=== PATIENT | male | born 1980 | race Caucasian/White ===

== ENCOUNTER 2020-11-21 13:59 | Inpatient (IN) | payer MEDICAID ==
[~2020-11-21] VITALS: Ht 185.4 cm; Wt 124.0 kg
[~2020-11-21 13:59] MED LIST: GLYB2.5T14 PO; RANI150C3 PO
[2020-11-21 14:51] LABS: Urine Bacteria NONE SEEN /hpf (None Seen); Urine Blood 3+ /uL (Negative); Urine Specific Gravity 1.027 (1.001-1.035); Urine WBC 9 /hpf (0 - 3)
[2020-11-21 15:01] LABS: White Blood Cell 8.5 10^3/uL (4.4-10.8)
[2020-11-21 15:02] LABS: Hemoglobin 11.9 g/dL (13.5-17.5); Mean Corpuscular Hemoglobin 38.8 pg (28.0-32.0); Mean Corpuscular Hgb Conc. 32.2 g/dL (32.0-36.0); Mean Corpuscular Volume 120.6 fL (80.0-100.0); Red Blood Cells 3.07 10^6/uL (4.5-5.90); Red Cell Distribution Width 18.2 % (11.8-14.3)
[2020-11-21 15:13] LABS: Band Neutrophils % (manual) 0; Basophils % (manual) 0 (0.0-2.0); Blast Cells 0; Eosinophils % (manual) 0 (0-7); Metamyelocytes % 0; Myelocytes % 0; Promyelocytes % 0; Reactive Lymphocytes 0
[2020-11-21 15:27] LABS: Albumin 2.7 g/dL (3.4-5.0); Calcium 12.1 mg/dL (8.5-10.1); Potassium 3.9 mmol/L (3.5-5.1)
[2020-11-21 15:33] LABS: BUN/Creatinine Ratio 26.9; Bilirubin, Total 0.4 mg/dL (0.2-1.0); Total Protein 8.1 g/dL (6.4-8.2)
[2020-11-21 15:43] LABS: Lymphocytes % (manual) 15 (10.0-50.0); Monocytes % (manual) 2 (0-12)
[2020-11-21] MEDS ORDERED: SODIUM CHLORIDE 0.9% 500 ML IV ONE (16:00)
[2020-11-21] MEDS ORDERED: SODIUM CHLORIDE 0.9% 1,000 ML IV ONE ×2 (16:00→22:00)
[2020-11-21] MEDS ORDERED: VANCOMYCIN 1GM/250ML 250 ML IV ONE (16:15)
[2020-11-21 16:57] LABS: INR 1.19 (0.9-1.15); Partial Thromboplastin Time < 20.0 sec (23.6-33.0)
[2020-11-21 17:25] LABS: Magnesium 3.3 mg/dL (1.6-2.6)
[2020-11-21] MEDS ORDERED: NITROGLYCERIN 0.4 MG SL TAB SL PRN (22:00)
[2020-11-21] MEDS ORDERED: MORPHINE SULFATE INJECTION 2 MG/ML SYRG IV PRN (22:00)
[2020-11-21] MEDS ORDERED: SODIUM BICARBONATE 50ML VIAL 150 ML in D5W 5% 1,000 ML IV SCH (22:00)
[2020-11-21] MEDS ORDERED: DEXTROSE (50%) 50ML SYRG IV PRN (22:00)
[2020-11-21 23:54] LABS: BUN/Creatinine Ratio 34.1; Calcium 10.8 mg/dL (8.5-10.1); Potassium 3.8 mmol/L (3.5-5.1)
[2020-11-22] MEDS: ACCU-CHEK COMFORT CURVE STRIP VI SCH ×6 (00:15→23:03)
[2020-11-22] MEDS: PIPERACILLIN-TAZOB 3.375GM 100 ML IV SCH ×4 (01:02→18:16)
[2020-11-22] MEDS: InsuLIN REG 1unit/0.01ml Soln (100units/ml) SC SCH ×6 (04:00→23:06)
[2020-11-22 06:54] LABS: Potassium 3.7 mmol/L (3.5-5.1)
[2020-11-22 07:00] LABS: Albumin 2.2 g/dL (3.4-5.0); BUN/Creatinine Ratio 34.5; Calcium 10.6 mg/dL (8.5-10.1)
[2020-11-22] MEDS: INSULIN LANTUS (GLARGINE) 1 /0.01ml (100units/ml) SC SCH (07:00)
[2020-11-22 07:03] LABS: Bilirubin, Total 0.5 mg/dL (0.2-1.0); Total Protein 6.9 g/dL (6.4-8.2)
[2020-11-22 07:06] LABS: Hematocrit 32.3 % (41.0-53.0); Hemoglobin 10.2 g/dL (13.5-17.5); Mean Corpuscular Hemoglobin 38.2 pg (28.0-32.0); Mean Corpuscular Hgb Conc. 31.6 g/dL (32.0-36.0); Mean Corpuscular Volume 120.7 fL (80.0-100.0); Red Blood Cells 2.68 10^6/uL (4.5-5.90); Red Cell Distribution Width 17.6 % (11.8-14.3); White Blood Cell 7.6 10^3/uL (4.4-10.8)
[2020-11-22 07:08] LABS: Basophils % (manual) 0 (0.0-2.0); Blast Cells 0; Eosinophils % (manual) 0 (0-7); Metamyelocytes % 0; Myelocytes % 0; Promyelocytes % 0; Reactive Lymphocytes 0
[2020-11-22] MEDS ORDERED: DEXTROSE (50%) 50ML SYRG IV PRN (09:45)
[2020-11-22] MEDS: SODIUM BICARBONATE 50ML VIAL 150 ML in D5W 5% 1,000 ML IV SCH ×2 (09:45→18:51)
[2020-11-22 10:47] LABS: Band Neutrophils % (manual) 1; Lymphocytes % (manual) 2 (10.0-50.0); Monocytes % (manual) 3 (0-12)
[2020-11-22 11:28] LABS: Amphetamine Screen, Urine NEGATIVE (NEGATIVE); Barbiturate Scree,Urine NEGATIVE (NEGATIVE); Benzodiazephine Screen, Urine NEGATIVE (NEGATIVE); Cannabinoid Screen, Urine POSITIVE (NEGATIVE); Cocaine Screen, Urine NEGATIVE (NEGATIVE); Opiate Scree,Urine NEGATIVE (NEGATIVE); Phencyclidine Screen, Urine NEGATIVE (NEGATIVE)
[2020-11-22 12:15] LABS: Alcohol, Urine < 3.0 mg/dL (0-10)
[2020-11-22 13:29] LABS: Protein, Urine 135.1 mg/dL (0.0-11.9)
[2020-11-23] MEDS: PIPERACILLIN-TAZOB 3.375GM 100 ML IV SCH ×4 (00:11→18:00)
[2020-11-23 05:18] LABS: Mean Corpuscular Volume 115.6 fL (80.0-100.0)
[2020-11-23 05:21] LABS: Hematocrit 26.1 % (41.0-53.0); Hemoglobin 8.7 g/dL (13.5-17.5); Mean Corpuscular Hemoglobin 38.6 pg (28.0-32.0); Mean Corpuscular Hgb Conc. 33.4 g/dL (32.0-36.0); Red Blood Cells 2.26 10^6/uL (4.5-5.90); Red Cell Distribution Width 16.7 % (11.8-14.3); White Blood Cell 5.7 10^3/uL (4.4-10.8)
[2020-11-23 05:38] LABS: BUN/Creatinine Ratio 32.6; Calcium 9.8 mg/dL (8.5-10.1)
[2020-11-23 06:00] LABS: Band Neutrophils % (manual) 0; Basophils % (manual) 0 (0.0-2.0); Blast Cells 0; Eosinophils % (manual) 0 (0-7); Metamyelocytes % 0; Myelocytes % 0; Promyelocytes % 0; Reactive Lymphocytes 0
[2020-11-23 06:22] LABS: Potassium 2.6 mmol/L (3.5-5.1)
[2020-11-23 06:50] LABS: Lymphocytes % (manual) 8 (10.0-50.0); Monocytes % (manual) 3 (0-12)
[2020-11-23] MEDS ORDERED: POTASSIUM PHOSPHATE 30 MEQ in SODIUM CHL 0.9% 100 ML IV ONE (07:00)
[2020-11-23] MEDS ORDERED: POTASSIUM PHOSPHATE 44 MEQ in D5W 5% 250 ML IV ONE ×3 (07:45→20:00)
[2020-11-23] MEDS ORDERED: POTASSIUM PHOSPHATE 30 MEQ in D5W 5% 250 ML IV ONE ×2 (08:00→11:00)
[2020-11-23] MEDS: POTASSIUM CHL 20MEQ/100ML 100 ML IV SCH ×4 (09:00→19:30)
[2020-11-23] MEDS: POTASSIUM CHLORIDE IV SCH (09:58)
[2020-11-23] MEDS: SODIUM BICARBONATE IV SCH (09:58)
[2020-11-23] MEDS: D5W 5% IV SCH (09:58)
[2020-11-23] MEDS ORDERED: MAGNESIUM SULFATE 1GM/100ML 100 ML IV SCH (10:00)
[2020-11-23] MEDS: INSULIN LANTUS (GLARGINE) 1 /0.01ml (100units/ml) SC SCH (11:35)
[2020-11-23] MEDS: ACCU-CHEK COMFORT CURVE STRIP VI SCH ×2 (11:35→17:00)
[2020-11-23] MEDS: InsuLIN REG 1unit/0.01ml Soln (100units/ml) SC SCH ×4 (11:35→22:00)
[2020-11-23] MEDS: MAGNESIUM SULFATE 1GM/100ML 100 ML IV SCH ×2 (15:00→16:00)
[2020-11-23 17:30] LABS: BUN/Creatinine Ratio 25.6; Calcium 9.6 mg/dL (8.5-10.1); Phosphorus 1.1 mg/dL (2.5-4.90)
[2020-11-23 17:55] LABS: Potassium 2.6 mmol/L (3.5-5.1)
[2020-11-23 22:00] VITALS: BP 110/63
[2020-11-24] MEDS: SODIUM BICARBONATE IV SCH ×4 (00:08→11:12)
[2020-11-24] MEDS: POTASSIUM CHLORIDE IV SCH ×4 (00:08→11:12)
[2020-11-24] MEDS: D5W 5% IV SCH ×4 (00:08→11:12)
[2020-11-24] MEDS: ACCU-CHEK COMFORT CURVE STRIP VI SCH ×5 (00:09→21:15)
[2020-11-24] MEDS: PIPERACILLIN-TAZOB 3.375GM 100 ML IV SCH ×4 (00:11→18:12)
[2020-11-24 05:00] VITALS: BP 116/62
[2020-11-24] MEDS: InsuLIN REG 1unit/0.01ml Soln (100units/ml) SC SCH ×4 (07:00→21:15)
[2020-11-24] MEDS: INSULIN LANTUS (GLARGINE) 1 /0.01ml (100units/ml) SC SCH (07:05)
[2020-11-24] MEDS ORDERED: MORP1TAB12 PO (07:42)
[2020-11-24] MEDS ORDERED: OXYC-963 (07:43)
[2020-11-24 08:12] LABS: Calcium 9.1 mg/dL (8.5-10.1)
[2020-11-24 08:15] LABS: BUN/Creatinine Ratio 18.2
[2020-11-24 08:31] LABS: Phosphorus 0.7 mg/dL (2.5-4.90); Potassium 2.6 mmol/L (3.5-5.1)
[2020-11-24] MEDS: OXYCODONE W/ ACETAMINOPHEN 5/325MG TABLET PO PRN ×3 (08:33→21:17)
[2020-11-24 09:00] VITALS: BP 107/65
[2020-11-24] MEDS ORDERED: POTASSIUM PHOSPHATE 44 MEQ in D5W 5% 250 ML IV ONE (10:00)
[2020-11-24] MEDS: POTASSIUM CHL 20 Meq TABLET PO SCH ×4 (11:15→21:47)
[2020-11-24 13:00] VITALS: BP 106/59
[2020-11-24 17:00] VITALS: BP 98/52
[2020-11-24 22:00] VITALS: BP 102/56
[2020-11-25] MEDS: PIPERACILLIN-TAZOB 3.375GM 100 ML IV SCH ×5 (01:14→23:41)
[2020-11-25] MEDS: OXYCODONE W/ ACETAMINOPHEN 5/325MG TABLET PO PRN ×5 (01:17→20:36)
[2020-11-25 05:00] VITALS: BP 100/51
[2020-11-25] MEDS: INSULIN LANTUS (GLARGINE) 1 /0.01ml (100units/ml) SC SCH (06:12)
[2020-11-25] MEDS: ACCU-CHEK COMFORT CURVE STRIP VI SCH ×4 (06:12→22:42)
[2020-11-25] MEDS: InsuLIN REG 1unit/0.01ml Soln (100units/ml) SC SCH ×3 (06:12→18:00)
[2020-11-25 07:06] LABS: Potassium 3.1 mmol/L (3.5-5.1)
[2020-11-25 07:09] LABS: BUN/Creatinine Ratio 7.7; Calcium 8.7 mg/dL (8.5-10.1); Magnesium 1.9 mg/dL (1.6-2.6)
[2020-11-25 07:48] LABS: Phosphorus 0.6 mg/dL (2.5-4.90)
[2020-11-25 09:00] VITALS: BP 105/47
[2020-11-25] MEDS ORDERED: POTASSIUM PHOSPHATE 44 MEQ in D5W 5% 250 ML IV ONE (09:00)
[2020-11-25] MEDS ORDERED: POTASSIUM EFFERVESENT TAB 25 MEQ PO SCH (10:00)
[2020-11-25 13:00] VITALS: BP 97/52
[2020-11-25] MEDS ORDERED: POTASSIUM CHL 20 Meq TABLET PO ONE ×2 (14:00→18:00)
[2020-11-25 17:00] VITALS: BP 90/40
[2020-11-25 19:53] LABS: Magnesium 1.7 mg/dL (1.6-2.6); Phosphorus 1.2 mg/dL (2.5-4.90); Potassium 3.9 mmol/L (3.5-5.1)
[2020-11-25 22:00] VITALS: BP 115/59
[2020-11-26] MEDS: OXYCODONE W/ ACETAMINOPHEN 5/325MG TABLET PO PRN ×5 (00:40→21:30)
[2020-11-26 05:00] VITALS: BP 95/58
[2020-11-26] MEDS ORDERED: POTASSIUM PHOSPHATE 44 MEQ in D5W 5% 250 ML IV ONE (05:00)
[2020-11-26] MEDS: PIPERACILLIN-TAZOB 3.375GM 100 ML IV SCH ×3 (06:46→17:59)
[2020-11-26] MEDS: ACCU-CHEK COMFORT CURVE STRIP VI SCH ×4 (06:46→21:31)
[2020-11-26] MEDS: INSULIN LANTUS (GLARGINE) 1 /0.01ml (100units/ml) SC SCH (06:48)
[2020-11-26] MEDS: InsuLIN REG 1unit/0.01ml Soln (100units/ml) SC SCH ×3 (08:00→21:32)
[2020-11-26 08:14] LABS: Magnesium 1.7 mg/dL (1.6-2.6); Phosphorus 1.2 mg/dL (2.5-4.90)
[2020-11-26 09:00] VITALS: BP 105/59
[2020-11-26 13:00] VITALS: BP 104/56
[2020-11-26] MEDS ORDERED: DEXTROSE (50%) 50ML SYRG IV PRN (13:30)
[2020-11-26 17:00] VITALS: BP 102/64
[2020-11-26 22:25] VITALS: BP 102/55
[2020-11-27] MEDS: PIPERACILLIN-TAZOB 3.375GM 100 ML IV SCH ×5 (00:40→23:44)
[2020-11-27] MEDS: OXYCODONE W/ ACETAMINOPHEN 5/325MG TABLET PO PRN ×6 (01:35→23:44)
[2020-11-27 05:25] VITALS: BP 97/55
[2020-11-27] MEDS: InsuLIN REG 1unit/0.01ml Soln (100units/ml) SC SCH ×4 (06:00→21:43)
[2020-11-27] MEDS: ACCU-CHEK COMFORT CURVE STRIP VI SCH ×4 (06:00→21:43)
[2020-11-27 09:00] VITALS: BP 98/60
[2020-11-27] MEDS: levoFLOXacin 500 MG TAB PO SCH (09:54)
[2020-11-27] MEDS: SODIUM CHLORIDE 0.9% 1,000 ML IV SCH ×2 (11:29→21:00)
[2020-11-27 12:35] LABS: Calcium 8.1 mg/dL (8.5-10.1); Magnesium 1.7 mg/dL (1.6-2.6); Potassium 3.6 mmol/L (3.5-5.1)
[2020-11-27 13:00] VITALS: BP 97/63
[2020-11-27 17:00] VITALS: BP 101/59
[2020-11-27] MEDS: SENNA 8.6 MG TAB PO SCH (21:12)
[2020-11-27] MEDS: MORPHINE SULF 15mg ER tab PO SCH (21:12)
[2020-11-27 22:00] VITALS: BP 103/64
[2020-11-28 04:52] VITALS: BP 97/62
[2020-11-28] MEDS: OXYCODONE W/ ACETAMINOPHEN 5/325MG TABLET PO PRN ×5 (05:20→23:07)
[2020-11-28] MEDS: PIPERACILLIN-TAZOB 3.375GM 100 ML IV SCH ×3 (06:11→18:07)
[2020-11-28] MEDS: InsuLIN REG 1unit/0.01ml Soln (100units/ml) SC SCH (06:11)
[2020-11-28] MEDS: SODIUM CHLORIDE 0.9% 1,000 ML IV SCH (06:11)
[2020-11-28] MEDS: ACCU-CHEK COMFORT CURVE STRIP VI SCH (06:12)
[2020-11-28 08:02] LABS: Hemoglobin 9.2 g/dL (13.5-17.5); White Blood Cell 9.3 10^3/uL (4.4-10.8)
[2020-11-28 08:03] LABS: Hematocrit 27.9 % (41.0-53.0); Mean Corpuscular Hemoglobin 39.3 pg (28.0-32.0); Mean Corpuscular Hgb Conc. 32.8 g/dL (32.0-36.0); Mean Corpuscular Volume 119.8 fL (80.0-100.0); Red Blood Cells 2.33 10^6/uL (4.5-5.90); Red Cell Distribution Width 17.7 % (11.8-14.3)
[2020-11-28 08:11] LABS: Basophils % (manual) 0 (0.0-2.0); Blast Cells 0; Eosinophils % (manual) 0 (0-7); Metamyelocytes % 0; Myelocytes % 0; Promyelocytes % 0; Reactive Lymphocytes 0
[2020-11-28 08:14] LABS: BUN/Creatinine Ratio 6.5; Calcium 8.3 mg/dL (8.5-10.1); INR 1.22 (0.9-1.15); Partial Thromboplastin Time 23.2 sec (23.6-33.0); Potassium 3.4 mmol/L (3.5-5.1)
[2020-11-28 08:40] VITALS: BP 97/58
[2020-11-28] MEDS: levoFLOXacin 500 MG TAB PO SCH (09:38)
[2020-11-28] MEDS: MORPHINE SULF 15mg ER tab PO SCH ×2 (09:38→21:32)
[2020-11-28] MEDS ORDERED: ENOXAPARIN SOD 40 MG/0.4 ML SYRINGE SC ONE (11:15)
[2020-11-28] MEDS ORDERED: FLUDROCORTISONE ACETATE 0.1 MG TAB PO ONE (11:15)
[2020-11-28] MEDS ORDERED: LEVALBUTEROL HCL 1.25 MG/3 ML NEB NEB PRN (11:15)
[2020-11-28] MEDS ORDERED: POTASSIUM CHL 20 Meq TABLET PO ONE (11:15)
[2020-11-28 14:30] VITALS: BP 100/55
[2020-11-28 14:50] VITALS: BP 97/58
[2020-11-28 14:58] LABS: Band Neutrophils % (manual) 3; Lymphocytes % (manual) 27 (10.0-50.0); Monocytes % (manual) 15 (0-12)
[2020-11-28 17:27] VITALS: BP 89/53
[2020-11-28] MEDS: SENNA 8.6 MG TAB PO SCH (21:32)
[2020-11-28 22:00] VITALS: BP 105/60
[2020-11-29] MEDS: PIPERACILLIN-TAZOB 3.375GM 100 ML IV SCH ×5 (00:27→23:04)
[2020-11-29] MEDS: OXYCODONE W/ ACETAMINOPHEN 5/325MG TABLET PO PRN ×4 (03:15→20:11)
[2020-11-29 05:00] VITALS: BP 100/59
[2020-11-29 08:13] VITALS: BP 92/62
[2020-11-29] MEDS ORDERED: FLUDROCORTISONE ACETATE 0.1 MG TAB PO SCH (10:00)
[2020-11-29 10:30] LABS: White Blood Cell 9.8 10^3/uL (4.4-10.8)
[2020-11-29 10:33] LABS: Hematocrit 31.1 % (41.0-53.0); Mean Corpuscular Hemoglobin 38.5 pg (28.0-32.0); Mean Corpuscular Hgb Conc. 32.2 g/dL (32.0-36.0); Mean Corpuscular Volume 119.5 fL (80.0-100.0); Red Cell Distribution Width 17.6 % (11.8-14.3)
[2020-11-29 10:42] LABS: Band Neutrophils % (manual) 0; Basophils % (manual) 0 (0.0-2.0); Blast Cells 0; Eosinophils % (manual) 0 (0-7); Metamyelocytes % 0; Myelocytes % 0; Promyelocytes % 0; Reactive Lymphocytes 0
[2020-11-29 10:47] LABS: Calcium 8.4 mg/dL (8.5-10.1); Potassium 3.9 mmol/L (3.5-5.1)
[2020-11-29] MEDS: FLUDROCORTISONE ACETATE 0.1 MG TAB PO SCH ×2 (10:52→21:54)
[2020-11-29] MEDS: MORPHINE SULF 15mg ER tab PO SCH ×3 (10:52→22:44)
[2020-11-29] MEDS: ENOXAPARIN SOD 40 MG/0.4 ML SYRINGE SC SCH (10:52)
[2020-11-29] MEDS: levoFLOXacin 500 MG TAB PO SCH (10:52)
[2020-11-29 13:21] VITALS: BP 139/77
[2020-11-29 13:23] VITALS: BP 120/61
[2020-11-29] MEDS ORDERED: LORATADINE 10 MG TAB PO SCH (14:00)
[2020-11-29 15:04] LABS: Lymphocytes % (manual) 16 (10.0-50.0); Monocytes % (manual) 16 (0-12)
[2020-11-29 17:28] VITALS: BP 106/57
[2020-11-29] MEDS: SENNA 8.6 MG TAB PO SCH (21:54)
[2020-11-29 22:00] VITALS: BP 91/50
[2020-11-30] MEDS: OXYCODONE W/ ACETAMINOPHEN 5/325MG TABLET PO PRN ×4 (01:15→19:22)
[2020-11-30 05:00] VITALS: BP 101/66
[2020-11-30] MEDS: PIPERACILLIN-TAZOB 3.375GM 100 ML IV SCH ×4 (05:08→23:50)
[2020-11-30 09:00] VITALS: BP 100/52
[2020-11-30] MEDS: levoFLOXacin 500 MG TAB PO SCH (10:12)
[2020-11-30] MEDS: ENOXAPARIN SOD 40 MG/0.4 ML SYRINGE SC SCH (10:12)
[2020-11-30] MEDS: FLUDROCORTISONE ACETATE 0.1 MG TAB PO SCH ×2 (10:12→21:06)
[2020-11-30] MEDS: MORPHINE SULF 15mg ER tab PO SCH ×2 (10:12→21:06)
[2020-11-30 13:00] VITALS: BP 102/55
[2020-11-30 16:47] VITALS: BP 104/9
[2020-11-30 17:41] VITALS: BP 104/59
[2020-11-30] MEDS ORDERED: FLU01T PO (17:48)
[2020-11-30] MEDS ORDERED: PROBCAP9 PO (17:48)
[2020-11-30] MEDS ORDERED: LEVO-28 PO (17:48)
[2020-11-30] MEDS: SENNA 8.6 MG TAB PO SCH (21:07)
[2020-11-30 22:00] VITALS: BP 97/68
[2020-12-01 02:39] VITALS: BP 140/82
[2020-12-01 05:00] VITALS: BP 102/63
[2020-12-01] MEDS: PIPERACILLIN-TAZOB 3.375GM 100 ML IV SCH ×2 (06:23→11:48)
[2020-12-01 09:00] VITALS: BP 102/64
[2020-12-01] MEDS: MORPHINE SULF 15mg ER tab PO SCH (09:42)
[2020-12-01] MEDS: levoFLOXacin 500 MG TAB PO SCH (09:42)
[2020-12-01] MEDS: ENOXAPARIN SOD 40 MG/0.4 ML SYRINGE SC SCH (09:42)
[2020-12-01] MEDS: FLUDROCORTISONE ACETATE 0.1 MG TAB PO SCH (09:42)
[2020-12-01] MEDS: ONDANSETRON HCL 4 MG/2 ML VIAL IV PRN ×2 (09:51→14:29)
[2020-12-01] MEDS: OXYCODONE W/ ACETAMINOPHEN 5/325MG TABLET PO PRN (14:32)
[2020-12-01 16:50] VITALS: BP 98/63
[2020-12-01 16:57] VITALS: BP 88/51
[2020-12-01 18:50] VITALS: BP 98/93
== END 2020-12-01 19:20 | DRG 469 ==
LOC: ER 13:59 → TELE 22:00 → TELE-EAST 11-23 18:13 → TELE-CENTR 11-24 02:30
PROVIDERS: ADMIT Hospitalist; ATTEND Hospitalist
PROC: B54MZZA Ultrasonography of Right Upper Extremity Veins, Guidance (ICD-10-PCS; principal; 2020-11-22)
PROC: 05HD33Z Insertion of Infusion Device into Right Cephalic Vein, Percutaneous Approach (ICD-10-PCS; 2020-11-22)
DX: N17.0 Acute kidney failure with tubular necrosis (principal); E87.2 Acidosis; E44.0 Moderate protein-calorie malnutrition; E11.51 Type 2 diabetes mellitus with diabetic peripheral angiopathy without gangrene; E83.39 Other disorders of phosphorus metabolism; E83.41 Hypermagnesemia; L97.929 Non-pressure chronic ulcer of unspecified part of left lower leg with unspecified severity; D75.89 Other specified diseases of blood and blood-forming organs; E66.01 Morbid (severe) obesity due to excess calories; E83.52 Hypercalcemia; E86.0 Dehydration; M19.90 Unspecified osteoarthritis, unspecified site; E87.6 Hypokalemia; Z20.822 Contact with and (suspected) exposure to COVID-19; F17.210 Nicotine dependence, cigarettes, uncomplicated; G89.29 Other chronic pain; I10 Essential (primary) hypertension; Z79.4 Long term (current) use of insulin; Z82.49 Family history of ischemic heart disease and other diseases of the circulatory system; Z83.3 Family history of diabetes mellitus; Z68.36 Body mass index [BMI] 36.0-36.9, adult
CPT/HCPCS: 36415; 36600; 70450; 71045; 73700; 73718; 74176; 76700; 80048; 80053; 80307; 81001; 82570; 82805; 82962; 83036; 83605; 83735; 83880; 84100; 84132; 84156; 84300; 84484; 85007; 85027; 85379; 85610; 85652; 85730; 86141; 86850; 86900; 86901; 87040; 87077; 87186; 87205; 87426; 93005; 93306; 93971; 96361; 96365; 97110; 97530; 99291; A4565; G0378; J1815; J2405; J2543; J3480; J7060

== ENCOUNTER 2023-04-14 19:12 | Inpatient (IN) | payer MEDICAID ==
[~2023-04-14] VITALS: Ht 185.4 cm; Wt 123.6 kg
[~2023-04-14 19:12] MED LIST changes: +FLU01T PO; -GLYB2.5T14 PO; +LEVO500T91 PO; +MORP1TAB12 PO; +OXYC-963; +PROBCAP9 PO
[2023-04-14 21:20] LABS: Basophils # (auto) 0 10 ^3/uL (0-0.2); Eosinophils # (auto) 0.1 10 ^3/uL (0-0.8); Eosinophils % (auto) 1.5 % (0.0-7.0); Lymphocytes # (auto) 3.5 10 ^3/uL (0.4-5.4); Monocytes # (auto) 0.4 10 ^3/uL (0-1.3); Neutrophils # (auto) 2.4 10 ^3/uL (1.6-8.6); Nucleated Red Blood Cells % 0.1 %; White Blood Cell 6.5 10^3/uL (4.4-10.8)
[2023-04-14 21:24] LABS: Basophils % (auto) 0.5 % (0.0-2.0); Chloride 106 mmol/L (98-107); Hematocrit 37.7 % (41.0-53.0); Hemoglobin 11.9 g/dL (13.5-17.5); Lymphocytes % (auto) 54.4 % (10.0-50.0); Mean Corpuscular Hemoglobin 28.8 pg (28.0-32.0); Mean Corpuscular Hgb Conc. 31.5 g/dL (32.0-36.0); Mean Corpuscular Volume 91.4 fL (80.0-100.0); Monocytes % (auto) 6.1 % (0.0-12.0); Neutrophils % (auto) 37.5 % (37.0-80.0); Potassium 4.9 mmol/L (3.5-5.1); Red Blood Cells 4.13 10^6/uL (4.5-5.90); Sodium 135 mmol/L (136-145)
[2023-04-14 21:25] LABS: Anion Gap 5 (5-15); Carbon Dioxide 24 mmol/L (20-30)
[2023-04-14 21:30] LABS: BUN/Creatinine Ratio 9.1 (10.0-20.0); Blood Urea Nitrogen 7 mg/dL (9-23); Glucose 97 mg/dL (74-106)
[2023-04-14 21:36] LABS: Red Cell Distribution Width 20.2 % (11.8-14.3)
[2023-04-14] MEDS ORDERED: TEMAZEPAM 15 MG CAP PO PRN (22:15)
[2023-04-14] MEDS ORDERED: ONDANSETRON HCL 4 MG/2 ML VIAL IV PRN (22:15)
[2023-04-15 04:22] VITALS: BP 116/85; PULSE 102; RESP 18; TEMP 98.1; O2SAT 96
[2023-04-15 05:00] VITALS: BP 116/85; PULSE 102; RESP 18; TEMP 98.1; O2SAT 96
[2023-04-15] MEDS ORDERED: GABA-1308 PO (05:07)
[2023-04-15 05:51] LABS: Anion Gap 7 (5-15); Carbon Dioxide 23 mmol/L (20-30); Chloride 105 mmol/L (98-107); Potassium 3.7 mmol/L (3.5-5.1); Sodium 135 mmol/L (136-145)
[2023-04-15 05:52] LABS: Calcium 9.6 mg/dL (8.5-10.1)
[2023-04-15 05:57] LABS: BUN/Creatinine Ratio 10.1 (10.0-20.0); Blood Urea Nitrogen 8 mg/dL (9-23); Glucose 125 mg/dL (74-106)
[2023-04-15] MEDS: CLINDAMYCIN 600MG IV 50 ML IV SCH (06:38)
[2023-04-15] MEDS: traMADol HCL 50 MG TAB PO PRN (06:39)
[2023-04-15] MEDS: GABAPENTIN 400 MG CAP PO SCH (06:39)
[2023-04-15 08:15] VITALS: BP 106/71; PULSE 89; RESP 18; TEMP 97.8; O2SAT 94
[2023-04-15] MEDS ORDERED: DULoxetine HCL 30 MG CAP PO SCH ×2 (10:00→22:00)
[2023-04-15 10:53] LABS: Basophils # (auto) 0 10 ^3/uL (0-0.2); Basophils % (auto) 0.6 % (0.0-2.0); Eosinophils # (auto) 0.1 10 ^3/uL (0-0.8); Eosinophils % (auto) 1.7 % (0.0-7.0); Hematocrit 36.4 % (41.0-53.0); Hemoglobin 11.6 g/dL (13.5-17.5); Lymphocytes # (auto) 3.4 10 ^3/uL (0.4-5.4); Lymphocytes % (auto) 52.9 % (10.0-50.0); Mean Corpuscular Volume 90.6 fL (80.0-100.0); Monocytes # (auto) 0.5 10 ^3/uL (0-1.3); Monocytes % (auto) 7.8 % (0.0-12.0); Neutrophils # (auto) 2.4 10 ^3/uL (1.6-8.6); Nucleated Red Blood Cells % 0.1 %; Red Blood Cells 4.02 10^6/uL (4.5-5.90); Red Cell Distribution Width 19.9 % (11.8-14.3); White Blood Cell 6.3 10^3/uL (4.4-10.8)
[2023-04-15 11:11] LABS: Albumin 4.2 g/dL (3.2-4.8); Bilirubin, Total 0.4 mg/dL (0.2-1.0); Total Protein 8.2 g/dL (5.7-8.2)
[2023-04-15 11:14] LABS: Ferritin 77.4 ng/mL (22-322); Folate (Folic Acid) 13.92 ng/mL (>5.38)
[2023-04-15 11:45] LABS: Bilirubin, Direct 0.1 mg/dL (<0.3)
[2023-04-15 12:15] VITALS: BP 128/75; PULSE 98; RESP 18; TEMP 98.2; O2SAT 97
[2023-04-15] MEDS: DOXYCYCLINE 100 MG TAB/CAP PO ONE (14:47)
[2023-04-15] MEDS: ZINC SULFATE 220mg CAP or TAB PO ONE (14:47)
[2023-04-15] MEDS: ASCORBIC ACID 500 MG TAB PO ONE (14:47)
[2023-04-15 16:15] VITALS: BP 119/73; PULSE 90; RESP 19; TEMP 98.2; O2SAT 96
[2023-04-15] MEDS: DOXYCYCLINE 100 MG TAB/CAP PO SCH (21:42)
[2023-04-15] MEDS: NICOTINE 21MG/24 HR TOPICAL PATCH TD ONE (21:43)
[2023-04-15 22:00] VITALS: BP 120/73; PULSE 74; RESP 19; TEMP 97.8; O2SAT 97
[2023-04-16 05:00] VITALS: BP 111/68; PULSE 63; RESP 16; TEMP 98.1; O2SAT 95
[2023-04-16 06:18] LABS: Cholesterol 126 mg/dL (< 200); LDL Cholesterol 79 mg/dL (< 100); Triglycerides 107 mg/dL (< 150)
[2023-04-16 06:20] LABS: HDL Cholesterol 33 mg/dL (40-59)
[2023-04-16] MEDS: PIPERACILLIN-TAZOB 3.375GM 100 ML IV ONE (08:05)
[2023-04-16] MEDS: METHYLERGONOVINE MALEATE 0.2 MG/ML AMP IM ONE (08:05)
[2023-04-16] MEDS: miSOPROStol 100 mcg TAB ONE (08:05)
[2023-04-16 08:30] VITALS: BP 116/72; PULSE 69; RESP 18; TEMP 98; O2SAT 97
[2023-04-16] MEDS: NICOTINE 21MG/24 HR TOPICAL PATCH TD SCH (09:43)
[2023-04-16] MEDS: ZINC SULFATE 220mg CAP or TAB PO SCH (09:43)
[2023-04-16] MEDS: ASCORBIC ACID 500 MG TAB PO SCH (09:43)
[2023-04-16] MEDS: CHOLECALCIFEROL (VITD3) 1,000UNIT=25mCg TAB PO SCH (09:44)
[2023-04-16] MEDS ORDERED: IPRATROPIUM BROM 0.5 MG/2.5ML INH SOL NEB PRN (11:15)
[2023-04-16 14:32] LABS: INR 1.08 (0.9-1.15); Prothrombin Time 11.3 sec (9.3-11.8)
[2023-04-16] MEDS: ERTAPENEM SOD INJ 1 GM in SODIUM CHL 0.9% 50 ML IV ONE (14:40)
[2023-04-16 16:30] VITALS: BP 121/78; PULSE 79; RESP 19; TEMP 98.4; O2SAT 97
[2023-04-16 20:00] VITALS: PULSE 74; RESP 18
[2023-04-16 23:48] VITALS: BP 125/80; PULSE 74; RESP 18; TEMP 98.1; O2SAT 95
[2023-04-17 05:00] VITALS: BP 115/71; PULSE 68; RESP 18; TEMP 97.7; O2SAT 93
[2023-04-17 06:48] LABS: Mean Corpuscular Volume 93.1 fL (80.0-100.0)
[2023-04-17 06:49] LABS: Hematocrit 37.2 % (41.0-53.0); Hemoglobin 11.7 g/dL (13.5-17.5); Mean Corpuscular Hemoglobin 29.2 pg (28.0-32.0); Mean Corpuscular Hgb Conc. 31.3 g/dL (32.0-36.0); White Blood Cell 6.2 10^3/uL (4.4-10.8)
[2023-04-17 06:53] LABS: Chloride 107 mmol/L (98-107); Potassium 4.6 mmol/L (3.5-5.1); Sodium 138 mmol/L (136-145)
[2023-04-17 06:54] LABS: Anion Gap 6 (5-15); Band Neutrophils % (manual) 0; Basophils % (manual) 0 (0.0-2.0); Blast Cells 0; Carbon Dioxide 25 mmol/L (20-30); Metamyelocytes % 0; Myelocytes % 0; Promyelocytes % 0; Reactive Lymphocytes 0
[2023-04-17 06:55] LABS: Calcium 9.9 mg/dL (8.7-10.4)
[2023-04-17 06:59] LABS: BUN/Creatinine Ratio 13.8 (10.0-20.0); Blood Urea Nitrogen 11 mg/dL (9-23); Glucose 86 mg/dL (74-106)
[2023-04-17 07:35] LABS: Eosinophils % (manual) 6 (0-7); Lymphocytes % (manual) 63 (10.0-50.0); Monocytes % (manual) 6 (0-12)
[2023-04-17 07:36] LABS: Platelet Estimate Adequate
[2023-04-17 08:45] VITALS: BP 119/75; PULSE 80; RESP 18; TEMP 97.4; O2SAT 93
[2023-04-17] MEDS: ERTAPENEM SOD INJ 1 GM in SODIUM CHL 0.9% 50 ML IV SCH (10:32)
[2023-04-17] MEDS: LIDOCAINE 1% (LOCAL ANESTH.) PF 5ml SDV ID ONE (12:01)
[2023-04-17 13:00] VITALS: BP 101/64; PULSE 77; RESP 20; TEMP 97.8; O2SAT 93
[2023-04-17] MEDS: ACETAMINOPHEN 325 MG TAB PO PRN (14:41)
[2023-04-17 15:34] VITALS: TEMP 36.6
[2023-04-17 15:41] VITALS: TEMP 97.9
[2023-04-17] MEDS ORDERED: SODIUM CHLOR 0.9% PF (SALINE LOCK) 10ML VIAL/SYR IV SCH (22:00)
== END 2023-04-17 19:50 | DRG 344 ==
LOC: ER 19:12 → OVERFLOW 22:30 → CENTRAL 04-15 03:12
PROVIDERS: ADMIT Internal Medicine Geriatric Medicine; ATTEND Internal Medicine Geriatric Medicine
PROC: 02HV33Z Insertion of Infusion Device into Superior Vena Cava, Percutaneous Approach (ICD-10-PCS; principal; 2023-04-17)
PROC: B548ZZA Ultrasonography of Superior Vena Cava, Guidance (ICD-10-PCS; 2023-04-17)
DX: E11.69 Type 2 diabetes mellitus with other specified complication (principal); M86.662 Other chronic osteomyelitis, left tibia and fibula; S81.802A Unspecified open wound, left lower leg, initial encounter; L08.9 Local infection of the skin and subcutaneous tissue, unspecified; F17.210 Nicotine dependence, cigarettes, uncomplicated; G62.9 Polyneuropathy, unspecified; J44.9 Chronic obstructive pulmonary disease, unspecified; E55.9 Vitamin D deficiency, unspecified; M19.09 Primary osteoarthritis, other specified site; Z59.00 Homelessness unspecified; X58.XXXA Exposure to other specified factors, initial encounter; Y93.89 Activity, other specified; Y92.89 Other specified places as the place of occurrence of the external cause; Y99.8 Other external cause status
CPT/HCPCS: 36415; 36569; 71045; 73590; 73718; 80048; 80061; 80076; 82306; 82607; 82728; 82746; 83036; 83540; 83735; 84443; 85007; 85025; 85027; 85045; 85610; 87205; G0378; J1335; J3490